=== PATIENT | female | born 1960 | race Caucasian/White ===

== ENCOUNTER → 2019-02-03 | Outpatient (CLI) | payer OTHER | LOC: CAT 07:43 | DX: Z13.6 Encounter for screening for cardiovascular disorders (principal); E78.00 Pure hypercholesterolemia, unspecified; I25.10 Atherosclerotic heart disease of native coronary artery without angina pectoris ==

== ENCOUNTER 2019-03-13 11:56 | Emergency (ER) | payer BC, OTHER ==
[~2019-03-13] VITALS: Ht 160 cm; Wt 57.6 kg
[2019-03-13] MEDS ORDERED: ZANTAC 150MG T150 MG PO (12:00)
[2019-03-13] MEDS ORDERED: ZOLOFT20 MG/1 ML PO (12:00)
[2019-03-13] MEDS ORDERED: SUDAFED 12 HOU120 MG PO (12:01)
[2019-03-13 12:11] LABS: ABSOLUTE NEUTROPHILS 5.5 thou/uL (1.4-8.2); BASOPHILS 0.6 % (0.0-2.0); EOSINOPHILS 0.7 % (0.0-3.0); HEMATOCRIT 39.4 % (37.0-47.0); HEMOGLOBIN 13.6 gm/dL (12.0-15.0); LYMPHOCYTES 18.6 % (24.0-44.0); MCH 31.7 pg (26.0-34.0); MCHC 34.4 g/dL (28.0-37.0); MCV 92.1 fL (80.0-100.0); PLATELET COUNT 237 thou/uL (150-400); POLYS 76.1 % (36.0-66.0); RBC 4.28 mil/uL (4.20-5.00); RDW 12.6 % (10.5-14.5); WBC 7.2 thou/uL (4.0-11.0)
[2019-03-13 12:20] LABS: ANION GAP 12 mmol/L (7-16); BUN 12 mg/dL (7-18); CALCIUM 9.2 mg/dL (8.5-10.1); CHLORIDE 103 mmol/L (98-107); CO2 24 mmol/L (21-32); CREATININE 0.9 mg/dL (0.6-1.0); GLUCOSE 157 mg/dL (74-106); POTASSIUM 3.1 mmol/L (3.5-5.1); SODIUM 139 mmol/L (136-145)
[2019-03-13 12:29] LABS: ALBUMIN 3.8 g/dL (3.4-5.0); MAGNESIUM 1.5 mg/dL (1.8-2.4); SGOT 14 U/L (15-37); SGPT 16 U/L (30-65); TOTAL BILIRUBIN 0.5 mg/dL (<0.1-1.0); TOTAL PROTEIN 6.5 g/dL (6.4-8.2); TROPONIN-I <0.06 ng/mL (<0.06)
--- NOTE | 2019-03-13 13:31 | EKG ---
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
[2019-03-13] MEDS ORDERED: MECLIZINE HCL25 MG PO (13:46)
[2019-03-13] MEDS ORDERED: ONDANSETRON HCL4 M2 PO (13:46)
[2019-03-13 14:08] VITALS: BP 114/82
== END 2019-03-13 14:08 | disposition home or self-care (01) ==
LOC: ER 11:56
PROVIDERS: Emergency Medicine
DX: R42 Dizziness and giddiness (principal)